=== PATIENT | female | born 1950 | race Caucasian/White ===

== ENCOUNTER → 2020-08-01 | Outpatient (CLI) | payer MEDICARE ==
[~2020-08-01] MED LIST: AMARYL1 M1 PO; DIGESTIVE ENZYME; DIOVAN PO; GLUCOSAMINE; LOSARTAN PO; VITAMINS; [UNRECOGNIZED DRUG - OTHER]; [UNRECOGNIZED DRUG - OTHER]
== END | disposition home or self-care (01) ==
LOC: COVID19 14:32
PROVIDERS: ATTEND Family Medicine
DX: U07.1 COVID-19 (principal)